=== PATIENT | male | born 1985 | race Caucasian/White ===

== ENCOUNTER 2023-02-17 17:38 | Emergency (ER) | payer SELFPAY ==
--- NOTE | ~2023-02-17 | XR_ITS ---
XR wrist LT min 3V DATE: 02/17/2023 18:03 INDICATION: Injury TECHNIQUE: 4 views COMPARISON: 4 views FINDINGS: There is a virtually nondisplaced comminuted intra-articular fracture of the distal radius. There is overlying soft tissue swelling of the dorsum of the wrist. The distal ulna is intact. Radiocarpal alignment is preserved. No other fracture or dislocation. IMPRESSION: Virtually nondisplaced comminuted intra-articular fracture of distal radius Reviewed, dictated and finalized at location A. HER POLISHER IMPRESSION: Virtually nondisplaced comminuted intra-articular fracture of dista l radius
--- NOTE | ~2023-02-17 | XR_ITS ---
XR elbow RT min 3V DATE: 02/17/2023 18:03 INDICATION: Elbow injury TECHNIQUE: 4 views COMPARISON: None FINDINGS: There is a very subtle nondisplaced radial neck fracture with associated elevation of anter ior and posterior fat pads consistent with hemarthrosis. No other fracture or dislocation. No periosteal reaction or bone destruction. IMPRESSION: Very subtle nondisplaced radial neck fracture with hemarthrosis Reviewed, dictated and finalized at location A. [employer]ICER
--- NOTE | ~2023-02-17 | XR_ITS ---
XR hand LT min 3V DATE: 02/17/2023 18:03 INDICATION: Injury TECHNIQUE: 4 views of left COMPARISON: None FINDINGS: Comminuted intra-articular fracture distal radius is again noted. No other fracture or dislocation is detected. IMPRESSION: Comminuted intra-articular fracture of the distal radius Reviewed, dictated and finalized at location A. & OWNER
[2023-02-17 17:40] VITALS: BP 154/99; PULSE 88; RESP 20; TEMP 36.9; O2SAT 99
--- NOTE | 2023-02-17 17:48 | ED.GENADULT ---
HPI - General Adult General Chief complaint: Extremity Injury, Upper Stated complaint: left wrist and right elbow pain Time Seen by Provider: 02/17/23 17:44 History of Present Illness HPI narrative: 37-year-old male presented to the emergency department for evaluation of left hand and right elbow injury. Patient was attempting to hop a fence last night got his foot caught fell forward and landed on his hands injuring his left wrist and right elbow. Patient denies striking head denies loss of consciousness. Related Data Allergies Allergy/AdvReac Type Severity Reaction Status Date / Time No Known Allergies Allergy Verified 02/17/23 17:41 Review of Systems Review of Systems: All systems reviewed & are unremarkable except as noted in HPI and below Exam Narrative: APPEARANCE: Well appearing, no pain, no distress, well-nourished. HEAD: normocephalic, atraumatic. EYES: PERRLA/EOMI, conjunctivae clear. NOSE: Normal no drainage EARS:TMS clear with good light reflex. THROAT: Pharynx clear, no exudate. NECK: Supple. No adenopathy, no masses. RESPIRATORY: Airway patent, respirations nonlabored. Clear to auscultation bilaterally, no rales, rhonchi, wheezing. CARDIOVASCULAR: Regular rate and rhythm without murmurs rubs or gallops. ABDOMINAL: Soft, nontender, nondistended, normal bowel sounds MUSCULOSKELETAL: Pain and tenderness to left wrist and to her right elbow with limited range of motion of both. Neurovascularly intact NEURO: Alert. Cranial nerves II through XII intact. Good gait. Good coordination SKIN: Warm, dry. Normal Color PSYCHIATRIC: Normal affect/mood. Course Course Emergency Course: 37-year-old male present today for evaluation of right elbow pain left wrist pain. Patient was found to have a radial head fracture and a distal radius fracture. Patient was updated on the results of the imaging and plan for treatment. Patient lives in [place] but will be staying in the area locally. Patient was placed in a sling for the right radial head fracture and in a volar splint for the left distal radius fracture. All questions and concerns were addressed patient was comfortable with the plan for discharge and close follow-up. Vital Signs Vital signs: Vital Signs Temperature 98.5 F 02/17/23 17:40 Pulse Rate 88 02/17/23 17:40 Respiratory Rate 20 02/17/23 17:40 Blood Pressure 154/99 H 02/17/23 17:40 Pulse Oximetry 99 02/17/23 17:40 Oxygen Delivery Room Air 02/17/23 17:40 Temperature 98.5 F 02/17/23 17:40 Pulse Rate 88 02/17/23 17:40 Respiratory Rate 20 02/17/23 17:40 Blood Pressure 154/99 H 02/17/23 17:40 Pulse Oximetry 99 02/17/23 17:40 Oxygen Delivery Room Air 02/17/23 17:40 Procedures Orthopedic Splinting/Casting Injury #1: Side: left Upper Extremity Injury Location: wrist Upper Extremity Immobilizer: volar splint Splint: customized in ED Pre-Procedure Neuro Vascular Exam: normal Post-Procedure Neuro Vascular Exam: normal Medical Decision Making Differential Diagnosis Differential Diagnosis: wrist fracture, hand fracture, elbow fracture, elbow dislocation Vital Signs Vital Signs: Vital Signs Temperature 98.5 F 02/17/23 17:40 Pulse Rate 88 02/17/23 17:40 Respiratory Rate 20 02/17/23 17:40 Blood Pressure 154/99 H 02/17/23 17:40 Pulse Oximetry 99 02/17/23 17:40 Oxygen Delivery Room Air 02/17/23 17:40 Temperature 98.5 F 02/17/23 17:40 Pulse Rate 88 02/17/23 17:40 Respiratory Rate 20 02/17/23 17:40 Blood Pressure 154/99 H 02/17/23 17:40 Pulse Oximetry 99 02/17/23 17:40 Oxygen Delivery Room Air 02/17/23 17:40 Discharge Plan Discharge Clinical Impression: Closed fracture of radial head, Distal radial fracture Patient Disposition: Home, Self-Care Condition: Stable Instructions: Antibiotic Form, Elbow Fracture (DC), Wrist Fracture in Adults (ED), How to Use a Slin
== END 2023-02-17 18:54 | disposition home or self-care (01) ==
PROVIDERS: Emergency Provider Emergency Medicine
DX: S52.134A Nondisplaced fracture of neck of right radius, initial encounter for closed fracture (principal); S52.572A Other intraarticular fracture of lower end of left radius, initial encounter for closed fracture; W18.09XA Striking against other object with subsequent fall, initial encounter
CPT/HCPCS: 29125; 73080; 73110; 73130; 99284; A4565